=== PATIENT | male | born 1980 | race Caucasian/White ===

== ENCOUNTER 2019-07-20 12:50 | Inpatient (IN) | payer MEDICAID ==
[~2019-07-20] VITALS: Ht 180.3 cm; Wt 69.7 kg
[~2019-07-20 12:50] MED LIST: CIPR500T4 PO; DOCU-144 PO; HYDR-3601 PO; LACTINEX PO; METR500T PO
[2019-07-20 12:58] VITALS: Ht 180.3 cm; Wt 69.7 kg
[2019-07-20] MEDS ORDERED: SOD CHLORIDE 0.9% 1,000 ML IV STA (14:17)
[2019-07-20] MEDS ORDERED: morphine 2 MG INJ IV STA (14:17)
[2019-07-20] MEDS ORDERED: FAMOTIDINE 20 MG INJ IV STA (14:17)
[2019-07-20] MEDS ORDERED: ONDANSETRON 4 MG INJ IV STA (14:17)
[2019-07-20] MEDS ORDERED: PIPER-TAZO 3.375 GM IV (PMX) 100 ML IVPB ONE (16:00)
[2019-07-20] MEDS ORDERED: ACETAMINOPHEN 325 MG TAB PO PRN ×2 (16:30→18:00)
[2019-07-20] MEDS ORDERED: ONDANSETRON 4 MG INJ IV PRN ×2 (16:30→18:00)
[2019-07-20] MEDS ORDERED: LACTATED RINGER'S 1,000 ML IV ONE (16:30)
[2019-07-20 17:32] VITALS: BP 112/55; PULSE 61; RESP 16
[2019-07-20] MEDS ORDERED: DOCUSATE SODIUM 100 MG CAP PO PRN (18:00)
[2019-07-20] MEDS ORDERED: ZOLPIDEM 5 MG TAB PO PRN (18:00)
[2019-07-20] MEDS ORDERED: NACL 0.9% 3 ML SYG IV SCH (18:00)
[2019-07-20] MEDS: HYDROCODONE/APAP (5/325) TAB PO PRN (19:57)
[2019-07-20] MEDS: NS + KCL 20 MEQ 1,000 ML IV SCH (19:57)
[2019-07-20 20:12] VITALS: BP 103/60; PULSE 61; RESP 20
[2019-07-21] VITALS (15 sets, daily range): BP systolic 97–126; BP diastolic 54–70; PULSE 55–90; RESP 14–20
[2019-07-21] MEDS: PIPER-TAZO 3.375 GM IV (PMX) 100 ML IVPB SCH ×5 (00:04→23:08)
[2019-07-21] MEDS: NS + KCL 20 MEQ 1,000 ML IV SCH ×3 (05:43→23:08)
[2019-07-21] MEDS: HYDROCODONE/APAP (5/325) TAB PO PRN (05:48)
[2019-07-21] MEDS ORDERED: MAGNESIUM SULFATE 2 GM/50 ML 50 ML IVPB ONE (12:00)
[2019-07-21] MEDS ORDERED: BUPIVACAINE 0.5%/EPI (SDV) 30 ML INJ ONE (15:52)
[2019-07-21] MEDS ORDERED: LIDOCAINE 1% (MPF) 30 ML INJ ONE (15:52)
[2019-07-21] MEDS ORDERED: PROPOFOL 200 MG INJ ONE (16:35)
[2019-07-21] MEDS ORDERED: ROCURONIUM 50 MG INJ ONE (16:36)
[2019-07-21] MEDS ORDERED: ROPIVACAINE 0.5 % 30 ML VIAL ONE (16:36)
[2019-07-21] MEDS ORDERED: MIDAZOLAM 1 MG/ML 2 ML INJ ONE (16:36)
[2019-07-21] MEDS ORDERED: LIDOCAINE 1% (MDV) 20 ML INJ ONE (16:37)
[2019-07-21] MEDS ORDERED: CEFAZOLIN 1 GM INJ ONE (16:53)
[2019-07-21] MEDS ORDERED: ONDANSETRON 4 MG INJ ONE (17:19)
[2019-07-21] MEDS ORDERED: SUGAMMADEX SODIUM 200 MG/2 ML VIAL IV ONE (17:19)
[2019-07-21] MEDS ORDERED: HYDROmorphONE 1 MG/5 ML IV SYRINGE IV ONE (17:47)
[2019-07-21] MEDS ORDERED: MEPERIDINE 25 MG INJ ONE (17:47)
[2019-07-21] MEDS ORDERED: HYDROmorphONE 1 MG/5 ML IV SYRINGE IV PRN ×3 (18:00)
[2019-07-21] MEDS ORDERED: TRIMETHOBENZAMIDE 100 MG/ML VIAL IM PRN (18:00)
[2019-07-21] MEDS ORDERED: EPHEDrine 25 MG/5 ML SYG IV PRN (18:00)
[2019-07-21] MEDS ORDERED: ONDANSETRON 4 MG INJ IV PRN ×2 (18:00)
[2019-07-21] MEDS ORDERED: hydrALAzine 20 MG INJ IV PRN (18:00)
[2019-07-21] MEDS ORDERED: LABETALOL HCL 20MG INJ IV PRN (18:00)
[2019-07-21] MEDS ORDERED: METOCLOPRAMIDE 10 MG INJ IV PRN (18:00)
[2019-07-21] MEDS ORDERED: RACEPINEPHRINE 2.25%(NEB) 0.5 ML AMP HHN ONE (18:00)
[2019-07-21] MEDS ORDERED: IPRATROPIUM (NEB) 0.5 MG/2.5 ML AMP HHN PRN (18:00)
[2019-07-21] MEDS ORDERED: MEPERIDINE 25 MG INJ IV PRN (18:00)
[2019-07-21] MEDS ORDERED: FENTAnyl 50 MCG/ML VIAL IV PRN ×3 (18:00)
[2019-07-21] MEDS ORDERED: MIDAZOLAM 1 MG/ML 2 ML INJ IV PRN (18:00)
[2019-07-21] MEDS ORDERED: ALBUMIN HUMAN 5% 250 ML IV PRN (18:00)
[2019-07-21] MEDS: morphine 2 MG INJ IV PRN ×2 (19:00→23:05)
[2019-07-22] MEDS: HYDROCODONE/APAP (5/325) TAB PO PRN ×3 (01:06→14:41)
[2019-07-22 02:00] VITALS: BP 107/62; PULSE 82; RESP 17
[2019-07-22] MEDS: PIPER-TAZO 3.375 GM IV (PMX) 100 ML IVPB SCH ×3 (05:51→18:00)
[2019-07-22 07:59] VITALS: BP 116/68; PULSE 55; RESP 17
[2019-07-22] MEDS: NS + KCL 20 MEQ 1,000 ML IV SCH ×2 (09:44→10:47)
[2019-07-22 14:00] VITALS: BP 123/75; PULSE 60; RESP 18
== END 2019-07-22 18:34 | disposition home or self-care (01) | DRG 853 ==
LOC: FTE 12:50 → PP2 16:15
PROVIDERS: ADMIT Internal Medicine; ATTEND Internal Medicine
PROC: 0DTJ4ZZ Resection of Appendix, Percutaneous Endoscopic Approach (ICD-10-PCS; principal; 2019-07-21 18:30)
DX: A41.9 Sepsis, unspecified organism (principal); K35.32 Acute appendicitis with perforation, localized peritonitis, and gangrene, without abscess; N20.0 Calculus of kidney; K40.90 Unilateral inguinal hernia, without obstruction or gangrene, not specified as recurrent
CPT/HCPCS: 36415; 74176; 80048; 80053; 81001; 83036; 83690; 83735; 84100; 85025; 88304; 96374; 96375; J0690; J1170; J2175; J2250; J2270; J2405; J2543; J2795; J3010; J3475; J3480; J7030; J7120